=== PATIENT | male | born 1960 | race Caucasian/White ===

== ENCOUNTER 2019-03-31 14:59 | Emergency (ER) | payer BC ==
[~2019-03-31] VITALS: Ht 180.3 cm; Wt 75.3 kg
[2019-03-31 15:06] VITALS: BP 128/75
--- NOTE | 2019-03-31 15:13 | NUR ---
Patient ambulated to bed 1 with family. RN evaluating patient at bedside.
--- NOTE | 2019-03-31 15:13 | NUR ---
BIB SIGNIFICANT OTHER. AAO X4 C/O WEAKNESS, HOT FLASHES, DRY COUGH AND GENERALIZED BACK, SHOULDERS, NECK PAIN 10/10 "OVER 2 MONTHS". PT REPORTS NAUSEA, SOB AT TIMES R/T COPD, DENIES VOMITING. PT HASN'T BEEN EATING WELL. PT STATES HE HAS CHRONIC BACK PAIN THAT HE IS ON PAIN MGMT. PT HAS STEADY GAIT AND DENIES DIZZINESS. 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 ER TO EVALUATE PT.
--- NOTE | 2019-03-31 15:37 | NUR ---
DR BELLE AT BEDSIDE FOR PT EVALUATION
[2019-03-31] MEDS ORDERED: NACL 0.9% 1,000 ML IV ONE (15:40)
[2019-03-31 16:26] LABS: BASOPHILS % (AUTO) 0.5 % (0.0-2.0); EOSINOPHILS # (AUTO) 0.1 K/uL (0-0.4); EOSINOPHILS % (AUTO) 0.8 % (0.0-4.0); HEMATOCRIT 33.9 % (36-52); HEMOGLOBIN 11.4 g/dL (12.0-18.0); LYMPHOCYTES # (AUTO) 2.5 K/uL (2.0-11.5); LYMPHOCYTES % (AUTO) 36.8 % (20.5-51.1); MEAN CORPUSCULAR HEMOGLOBIN 33 pg (27-31); MEAN CORPUSCULAR HGB CONC 34 g/dL (33-37); MONOCYTES # (AUTO) 0.6 K/uL (0.8-1.0); MONOCYTES % (AUTO) 8.3 % (1.7-9.3); NEUTROPHILS # (AUTO) 3.6 K/uL (1.8-7.7); NEUTROPHILS % (AUTO) 53.6 % (42.2-75.2); PLATELET COUNT (AUTO) 212 K/uL (140-450); WHITE BLOOD COUNT (AUTO) 6.8 K/uL (4.8-10.8)
[2019-03-31 16:35] LABS: APPEARANCE,URINE CLEAR (CLEAR); BILIRUBIN,URINE NEGATIVE (NEGATIVE); BLOOD, URINE NEGATIVE (NEGATIVE); LEUKOCYTE ESTERASE ,URINE NEGATIVE (NEGATIVE); NITRITE, URINE NEGATIVE (NEGATIVE); PH,URINE 5.5 (5.0-9.0); UGLUCOSE NEGATIVE (NEGATIVE)
--- NOTE | 2019-03-31 16:36 | NUR ---
PT ASLEEP. EASILY AROUSABLE BY VOICE. ACTING APPROPRIATELY. SAFETY ENSURED. WILL CONTINUE TO MONITOR.
[2019-03-31 16:38] LABS: COLOR,URINE AMBER (YELLOW)
[2019-03-31 16:50] LABS: ANION GAP 14.4 (8-16); CARBON DIOXIDE 26.9 mmol/L (21-32); CREATININE 0.9 mg/dL (0.7-1.3); POTASSIUM 3.3 mmol/L (3.5-5.1)
[2019-03-31] MEDS ORDERED: KETOROLAC 30 MG/ML VIAL IVP ONE (16:50)
[2019-03-31 16:52] LABS: BARBITURATE, URINE NEG. ng/ml (NEG <=200); BENZODIAZEPINE, URINE POS. ng/mL (NEG <=200); CANNABINOID, URINE NEG. ng/mL (NEG <=50); COCAINE, URINE NEG. ng/mL (NEG <=300); OPIATE, URINE NEG. ng/mL (NEG <=2000); PHENCYCLIDINE SCREEN,URINE NEG. ng/mL (NEG <=25)
[2019-03-31 16:55] LABS: ALBUMIN 3.8 g/dL (3.4-5.0); TOTAL BILIRUBIN 0.5 mg/dL (0.0-1.0)
[2019-03-31 17:34] VITALS: BP 142/70
--- NOTE | 2019-03-31 17:34 | NUR ---
Patient discharged with v/s stable. Written and verbal after care instructions given and explained. Patient verbalized understanding. Ambulatory with steady gait. All questions addressed prior to discharge. Advised to follow up with PMD.
== END 2019-03-31 17:34 | disposition home or self-care (01) ==
LOC: MED 14:59
DX: E86.0 Dehydration (principal); R53.1 Weakness; F15.90 Other stimulant use, unspecified, uncomplicated; E87.6 Hypokalemia; D64.9 Anemia, unspecified; J44.9 Chronic obstructive pulmonary disease, unspecified; F31.9 Bipolar disorder, unspecified; F17.200 Nicotine dependence, unspecified, uncomplicated; Z71.6 Tobacco abuse counseling; Z98.890 Other specified postprocedural states
CPT/HCPCS: 36415; 71045; 80053; 80305; 81003; 85025; 93005; 96361; 96374; 99284; J1885; J7030; Q0092

== ENCOUNTER 2019-06-16 12:41 | Emergency (ER) | payer BC ==
[~2019-06-16] VITALS: Ht 180.3 cm; Wt 72.6 kg
[2019-06-16 12:43] VITALS: BP 130/82
--- NOTE | 2019-06-16 12:51 | NUR ---
PATIENT AMBULATED TO BED 7
--- NOTE | 2019-06-16 13:10 | NUR ---
PT TO ED WITH COUGH AND "JUST NOT FEELING WELL". NO COUGH NOTED UPON ASSESSMENT. LUNG SOUNDS CLEAR BILATERALLY. NO DISTRESS NOTED. PT IN BED FOR MD MARINO.
[2019-06-16] MEDS ORDERED: KETOROLAC 30 MG/ML VIAL IM ONE (14:05)
[2019-06-16] MEDS ORDERED: ACETAMINOPHEN EXTRA STRENGTH 500 MG TAB PO ONE (14:05)
--- NOTE | 2019-06-16 14:39 | NUR ---
PT RETURNED FROM X RAY
--- NOTE | 2019-06-16 15:10 | NUR ---
PER PT "MY PAIN LEVEL IS THE SAME I STILL FEEL SICK"
--- NOTE | 2019-06-16 16:00 | NUR ---
PT RESTING IN BED ON CELL PHONE. VSS. WILL CONTINUE TO MONITOR.
[2019-06-16 17:33] VITALS: BP 167/88
--- NOTE | 2019-06-16 17:33 | NUR ---
Patient discharged with v/s stable. Written and verbal after care instructions given and explained. Pt encouraged to rest and stay hydrated. Patient alert, oriented and verbalized understanding of instructions. Ambulatory with steady gait. All questions addressed prior to discharge. ID band removed. Patient advised to follow up with PMD. Rx of ZOFRAN 4MG, ACETAMINOPHEN 500MG AND MOTRIN 600MG WAS given. Patient educated on indication of medication including possible reaction and side effects. Opportunity to ask questions provided and answered.
== END 2019-06-16 17:33 | disposition home or self-care (01) ==
LOC: MED 12:41
DX: B34.9 Viral infection, unspecified (principal); R11.10 Vomiting, unspecified; J44.9 Chronic obstructive pulmonary disease, unspecified; F17.210 Nicotine dependence, cigarettes, uncomplicated; Z71.6 Tobacco abuse counseling
CPT/HCPCS: 71046; 87804; 96372; 99284; J1885